=== PATIENT | female | born 2000 | race Caucasian/White ===

== ENCOUNTER 2024-03-26 12:28 | Emergency (ER) | payer SELFPAY ==
[2024-03-26 12:40] VITALS: BP 131/84; PULSE 108; RESP 18; TEMP 97.8; BMI 27.4
[2024-03-26] MEDS ORDERED: IBUPROFEN 600 MG TABLET (FP) PO ONE (13:02)
[2024-03-26] MEDS: IBUPROFEN 600 MG TABLET (FP) PO ONE (13:03)
[2024-03-26 13:27] LABS: THROAT:GRP A STREP DETECTED (NOTDETECTED)
== END 2024-03-26 13:43 | disposition home or self-care (01) ==
LOC: JERFT 12:28
DX: J02.0 Streptococcal pharyngitis (principal); R50.9 Fever, unspecified; R51.9 Headache, unspecified; Z20.822 Contact with and (suspected) exposure to COVID-19
CPT/HCPCS: 0241U-QW; 87651; 99283-25